=== PATIENT | male | born 1995 | race Caucasian/White ===

== ENCOUNTER 2017-05-10 12:55 | Emergency (ER) | payer MEDICAID ==
[2017-05-10 14:00] VITALS: RESP 18
--- NOTE | 2017-05-10 15:27 | ED PDOC ---
HPI: General Adult Time Seen by Provider: 05/10/17 13:10 Chief Complaint (Nursing): Rib Injury Chief Complaint (Provider): Right-sided rib pain History Per: Patient History/Exam Limitations: no limitations Onset/Duration Of Symptoms: Days (x 2-3) Current Symptoms Are (Timing): Still Present Additional Complaint(s): Dagoberto Blas is a 21 y/o male who presents to the ED complaining of right- sided chest pain and upper back pain, for the past 2-3 days. Pain worsens with movement, such as playing basketball, and with breathing. Patient states he fell on his back 1 week ago, but had no pain at that time. Denies any other recent injuries, trauma, or surgeries. PMD: Fady Leo Past Medical History Reviewed: Historical Data, Nursing Documentation, Vital Signs Vital Signs: Last Vital Signs Temp 98.3 F 05/10/17 16:14 Pulse 54 L 05/10/17 16:14 Resp 18 05/10/17 16:14 BP 114/65 05/10/17 16:14 Pulse Ox 100 05/10/17 16:14 - Medical History PMH: No Chronic Diseases - Surgical History Surgical History: No Surg Hx - Family History Family History: States: Unknown Family Hx - Social History Current smoker - smoking cessation education provided: No Alcohol: None Drugs: Cannabis - Immunization History Hx Tetanus Toxoid Vaccination: No (not UTD) - Home Medications Home Medications: Ambulatory Orders Medication Instructions Recorded No Known Home Med 08/30/15 - Allergies Allergies/Adverse Reactions: Allergies Allergy/AdvReac Type Severity Reaction Status Date / Time No Known Allergies Allergy Verified 07/10/14 14:08 Review of Systems ROS Statement: Except As Marked, All Systems Reviewed And Found Negative Cardiovascular: Positive for: Chest Pain (right-sided) Musculoskeletal: Positive for: Back Pain (right-sided upper) Physical Exam - Reviewed Nursing Documentation Reviewed: Yes Vital Signs Reviewed: Yes - Physical Exam Appears: Positive for: Non-toxic, No Acute Distress Head Exam: Positive for: ATRAUMATIC, NORMOCEPHALIC Skin: Positive for: Normal Color (No ecchymosis), Warm, Dry Eye Exam: Positive for: EOMI, Normal appearance, PERRL Neck: Positive for: Normal, Painless ROM, Supple Cardiovascular/Chest: Positive for: Regular Rate, Rhythm. Negative for: Murmur Respiratory: Positive for: Normal Breath Sounds (lungs clear bilaterally). Negative for: Respiratory Distress Gastrointestinal/Abdominal: Positive for: Normal Exam, Soft. Negative for: Tenderness Back: Positive for: Normal Inspection. Negative for: Vertebral Tenderness Extremity: Positive for: Normal ROM, Capillary Refill (< 2 sec). Negative for: Pedal Edema, Deformity Neurologic/Psych: Positive for: Alert, Oriented. Negative for: Motor/Sensory Deficits - ECG O2 Sat by Pulse Oximetry: 97 (RA) Pulse Ox Interpretation: Normal Medical Decision Making Medical Decision Making: Time: 14:05 Initial Impression: Rib contusion, Rib fracture, r/o pneumothorax Initial Plan: --Toradol 30 mg IM --EKG --Pending X-Ray Right Ribs and Chest, and Spine Thoracolumbar 2 view Xrays reviewed no acute findings Scribe Attestation: Documented by Elaina Locke, acting as a scribe for Keven Doll MD Provider Scribe Attestation: All medical record entries made by the Scribe were at my direction and personally dictated by me. I have reviewed the chart and agree that the record accurately reflects my personal performance of the history, physical exam, medical decision making, and the department course for this patient. I have also personally directed, reviewed, and agree with the discharge instructions and disposition. Disposition - Clinical Impression Clinical Impression: Contusion of rib on right side, Muscle pain - Patient ED Disposition Is Patient to be Admitted: No Doctor Will See Patient In The: Office Counseled Patient/Family Regarding: Studies Performed, Diagnosis, Need For Followup - Disposition Referrals: [facility] [Outside] Disposition: Routine/Home Disposition Time: 16:01 Condition: GOOD Additional Instructions: Take advil for pain. Follow up with your PCP in 2-3 days. Instructions: Rib Contusion (ED)
--- NOTE | 2017-05-10 15:30 | RAD ---
PROCEDURE: Radiographs of the Chest and Right Ribs. HISTORY: right rib pain chest pain COMPARISON: None available. TECHNIQUE: Frontal radiograph of the chest and multiple oblique radiographs of the right ribs were obtained. FINDINGS: RIGHT RIBS: No fracture or focal lesion visualized. LUNGS: Clear. PLEURA: No pneumothorax or pleural fluid. CARDIOVASCULAR: Normal sized heart. No pulmonary vascular congestion. OTHER FINDINGS: None. IMPRESSION: Unremarkable radiographs of the chest and right ribs. No right rib fracture.
--- NOTE | 2017-05-10 15:54 | RAD ---
HISTORY: Back pain COMPARISON: No prior. FINDINGS: BONES: Please note evaluation of the upper thoracic spine on lateral projection is limited due to patient positioning. There is normal alignment of the thoracic vertebral bodies. Thoracic kyphosis is maintained. Vertebral bodies are normal in height. There is no acute fracture. Bone mineralization is normal. DISC SPACES: The disc heights are maintained. SOFT TISSUES: The paravertebral soft tissues are normal. OTHER FINDINGS: None. IMPRESSION: Limited examination as the upper thoracic vertebral bodies could not be evaluated on lateral projection due to patient position, allowing for this no acute fracture.
[2017-05-10 16:15] VITALS: BP 114/65; PULSE 54; TEMP 98.3
--- NOTE | 2017-05-11 10:46 | CARD ---
APPROVED REPORT EKG Measurement Heart [id number] <Conclusion> Sinus bradycardia Otherwise normal ECG
[2017-05-12 10:29] VITALS: O2SAT 97
== END 2017-05-10 16:15 | disposition home or self-care (01) ==
LOC: H.ER 12:55
DX: S22.31XA Fracture of one rib, right side, initial encounter for closed fracture (principal); W22.8XXA Striking against or struck by other objects, initial encounter; Y93.67 Activity, basketball

== ENCOUNTER 2017-08-29 17:28 | Emergency (ER) | payer MEDICAID ==
[2017-08-29 17:46] VITALS: BP 134/60; PULSE 89; RESP 16; TEMP 98.8; O2SAT 100
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
== END 2017-08-29 19:58 | disposition home or self-care (01) ==
LOC: H.ER 17:28
DX: M54.16 Radiculopathy, lumbar region (principal)